=== PATIENT | female | born 1985 | race Caucasian/White ===

== ENCOUNTER 2025-04-10 13:46 | Emergency (ER) | payer OTHER, SELFPAY ==
[2025-04-10 13:50] VITALS: BP 147/74; PULSE 85; RESP 18; TEMP 36.7; O2SAT 98
[2025-04-10 14:35] LABS: EDCOVIDSCREEN Negative (Negative); EDINFLUASCREEN Negative (Negative); EDINFLUBSCREEN Negative (Negative)
--- NOTE | 2025-04-10 14:48 | ED_ITS ---
HPI - URI/Sore Throat General Chief Complaint: Upper Respiratory Infection Stated Complaint: sinus infection Time Seen by Provider: 04/10/25 14:33 Source: patient and RN notes reviewed Mode of arrival: ambulatory Limitations: no limitations History of Present Illness HPI Narrative: 39-year-old female patient with history of asthma presents today complaining of a nasal congestion with sinus pressure, headache, and rhinorrhea since yesterday. Denies cough, sore throat, fever, shortness of breath. She has tried Mucinex and Advil without much improvement and currently rates her discomfort /10. She used her albuterol inhaler once before bed last night as well. States that she becomes ill once a year with symptoms similar to this in typically needs an antibiotic. Related Data Allergies Allergy/AdvReac Type Severity Reaction Status Date / Time No Known Allergies Allergy Verified 04/10/25 13:57 [facility] Past Medical History Medical History (Updated 04/10/25 @ 14:49 by Mame Moon, [employer]IT[employer] OPERATOR, MANAGEMENT TRAINEE) Asthma Comments At time of signature, I have reviewed and agree with nursing past medical, surgical, social and family history unless otherwise noted. Please see nursing chart for further information. There is no relevant family history pertinent to the presenting complaint Exam Narrative: GENERAL: Mildly ill-appearing, well-nourished, and in no acute distress. HEAD: Normocephalic, atraumatic. EYES: EOMI. No redness or drainage. Conjunctivae normal. ENT: Mucous membranes pink and moist. Nares congested with rhinorrhea.. Bilateral nasal turbinates are mildly edematous with clear discharge. TMs normal bilaterally. Throat normal. Uvula midline. NECK: Normal AROM. Supple. No lymphadenopathy. CHEST: No respiratory distress. Clear to auscultation. HEART: Regular rate and rhythm. No murmur appreciated. EXTREMITIES: Normal range of motion. No edema. SKIN: Warm, dry, no rash. Capillary refill normal. Normal skin turgor. NEURO: No focal deficits. Alert and oriented x3. Gait steady. PSYCH: Normal affect. No signs of depression or anxiety. Course Course Level of Care: Express Care Visit Vital Signs Vital signs: Vital Signs Temperature 98.1 F 04/10/25 13:50 Pulse Rate 85 04/10/25 13:50 Respiratory Rate 18 04/10/25 13:50 Blood Pressure 147/74 H 04/10/25 13:50 Pulse Oximetry 98 04/10/25 13:50 Oxygen Delivery Room Air 04/10/25 13:50 Temperature 98.1 F 04/10/25 13:50 Pulse Rate 85 04/10/25 13:50 Respiratory Rate 18 04/10/25 13:50 Blood Pressure 147/74 H 04/10/25 13:50 Pulse Oximetry 98 04/10/25 13:50 Oxygen Delivery Room Air 04/10/25 13:50 Reviewed MDM - URI/Sore Throat MDM Narrative Medical decision making narrative: 39-year-old female patient with history of asthma presents today complaining of a nasal congestion with sinus pressure, headache, and rhinorrhea since yesterday. Denies cough, sore throat, fever, shortness of breath. She has tried Mucinex and Advil without much improvement and currently rates her discomfort 12/12. She used her albuterol inhaler once before bed last night as well. States that she becomes ill once a year with symptoms similar to this in typically needs an antibiotic. Upon exam, patient is mildly ill appearing.Nares congested with rhinorrhea.. Bilateral nasal turbinates are mildly edematous with clear discharge. Her COVID-19 and influenza swabs are negative. Her sym ptoms are likely viral in etiology. Discussed [id number] medication use and duration of illness. Patient would like to be started on a course of antibiotics prophylactically for sinusitis/pneumonia. Discussed with patient that it is not standard of care to initiate antibiotics until there is evidence of a bacterial infection present, which there is not today. As patient has asthma she will be started on a burst of prednisone due to complaining of needing to use her inhaler last night more than normal. SHe will also get a refill on her rescue albuterol. VSS. ED precautions and anticipatory guidance given. Differential Diagnosis Differential diagnosis: Likely upper respiratory infection, sinusitis, viral infection, influenza and other (COVID-19, pneumonia, asthma exacerbation) Lab Data Attestation: I reviewed the patient's lab results. Labs: Lab Results 04/10/25 Range/Units 13:58 POC Influenza A Ag Negative (Negative) POC Influenza B Ag Negative (Negative) POC SARS CoV-2 Ag Negative (Negative) Critical Care Time Critical Care Time Critical Care Time: No Discharge Plan Discharge Clinical Impression: Upper respiratory infection Qualifiers: URI type: unspecified URI Qualified Code(s): J06.9 - Acute upper respiratory infection, unspecified Patient Disposition: Home Condition: Stable Instructions: Upper Respiratory Infection (DC) Additional Instructions: Your COVID-19 and influenza swabs are negative today. Your symptoms are likely due to a viral illness, which is not treated with antibiotics. Virus symptoms can last for up to 7-10days. Take Tylenol or ibuprofen for pain or fever. Take the prednisone and use albuterol inhaler as directed. Rest and stay hydrated. Follow up with your PCP in 7-10 days if symptoms are not improving, or sooner if symptoms worsen. Go to the ER immediately if you develop shortness of breath, difficulty swallowing, development of new fever greater than 100.3, or any other concerning symptoms. Patient Language: Hungarian Prescriptions: New prednisone 20 mg tablet 40 mg PO DAILY 5 Days Qty: 10 0RF albuterol sulfate 90 mcg/actuation HFA aerosol inhaler 2 inh inhalation Q4-6H PRN (Reason: shortness of breath or wheezing) Qty: 8.5 0RF Follow-up/Referrals: Lefty,MIAH Mancia [Primary Care Provider] Time of Disposition: 14:45
--- OUTSIDE RECORDS SUMMARY | 2025-04-10 20:14 | XMS_ITS | Clinical Summary ---
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 Name Role Phone Jaret Olea Primary Care Provider [phone] Allergies No known active allergies Medications albuterol HFA (ProAir HFA) 90 mcg/actuation inhaler Inhale 2 puffs every 6 (six) hours as needed for wheezing 1 each 1 Active Additional Information Patient taking differently:2 puff inhalation Every 6 hours PRN,wheezing, shortness of breath, Informant: Self, Reported on 02/20/2023 acidophilus-pec tin, citrus 100 million cell-10 mg capsule Take 1 tablet by mouth daily before breakfast Active acetaminophen (TYLENOL) 500 mg tablet Take 2 tablets (1,000 mg total) by mouth every 6 (six) hours as needed for pain 30 tablet 3 Active ibuprofen (ADVIL,MOTRIN) 600 mg tablet Take 1 tablet (600 mg total) by mouth every 6 (six) hours as needed for pain 28 tablet 3 Active Active Problems Problem Noted Date Diagnosed Date Abnormal uterine bleeding (AUB) 02/10/2023 Abnormal uterine bleeding 01/05/2023 Overview (01/05/2023): Patient presents with long standing history of irregular, heavy cycles, ranging from 14-30 days, with passage of clots and 7-8 changes of pads/tampons throughout the day. Prior workup with outside provider 08/2022 notable for: CBC Hg 12.6 TSH 1.3, T4 1.13 (2020) Testosterone 23 Estradiol 34 US Pelvis (12/30/22) IMPRESSION: 1.5 cm fibroid within the uterine body. Otherwise negative. Discussed that in the setting of the patient's excessive hair growth on her chin, she meets criteria for PCOS with 2/3 [place] criteria. Also discussed management options, including OCPs/hormonal management, spironolactone, weight loss, etc. Patient notes that she has lost 6 pounds in the last month for unknown reasons. We also discussed the etiology of AUB, including structural (PALM) and functional (COEIN) etiologies for her symptoms, which have been mostly ruled out in the setting of prior ultrasound and TSH. We discussed management options for AUB, including medical, procedural (ablation), and surgical (hysterectomy) management. The patient strongly desires an ablation at this time, which we discussed would likely not treat her symptoms of PCOS in their entirety. She declines medical management at this time, as she does not like taking pills/would like to be more natural. Plan: - EMB today, will follow up result - Will discuss management options pending result Subareolar breast abscess 11/04/2021 Surgical History Surgery Date Site/Laterality Comments TUBAL LIGATION 06/05/2012 - 06/04/2013 laparoscopic Medical History Medical History Date Comments Asthma PONV (postoperative nausea and vomiting) Motion sickness Family History Medical History Relation Name Comments Heart failure Mother Heart attack Other Stroke Other Relation Name Status Comments Mother Other Social History Tobacco Use Types Packs/Day Years Used Date Smoking Tobacco: Every Day Cigarettes 0.5 15 Smokeless Tobacco: Never AUDIT-C Answer Date Recorded Q1: How often do you have a drink containing alcohol? Never 03/08/2023 Q2: How many drinks containi ng alcohol do you have on a typical day when you are drinking? Patient does not drink Q3: How often do you have si x or more drinks on one occasion? Never 03/08/2023 Hunger Vital Sign Answer Date Recorded Within the past 12 months, y ou worried that your food would run out before you got the money to buy more. Never true 01/06/20 Within the past 12 months, t he food you bought just didn't last and you didn't have money to get more. Never true 01/05/2023 Personal Safety Answer Date Recorded Have you ever been in or are you currently in a harmful physical or emotional relationship or is someone making you feel afraid or unsafe? Denies 03/08/2023 Comments No Sex and Gender Information Value Date Recorded Sex Assigned at Not on file Legal Sex Female 8:45 AM QUALITY ASSURANCE ADVISOR Gender Identity Not on file Sexual Orientation Not on file Obstetrics History Para Term AB IAB SAB Ectopic Multiple Livin g Live Births 3 2 1 1 2 Date Outcome GA Total Labor Labor/2nd/3rd Weight Sex Type Anes PTL Prudence A1 A5 Name Clin Term Para AB Last Filed Vital Signs Vital Sign Reading Time Taken Comments Blood Pressure 115/78 03/08/2023 5:40 PM CDT Pulse 75 03/08/2023 5:40 PM CDT Temperature 36.9 C (98.4 F) 03/08/2023 5:31 PM CDT Respiratory Rate 19 03/08/2023 5:40 PM CDT Oxygen Saturation 96% 03/08/2023 5:40 PM CDT Inhaled Oxygen Concentration - - Weight 78 kg (172 lb) 02/20/2023 10:10 AM CDT Height 154.9 cm (5' 1) 02/20/2023 10:10 AM CDT Body Mass Index 32.5 02/20/2023 10:10 AM CDT Plan of Treatment Health Maintenance Due Date Last Done Comments Cervical Cancer Screening 1987 Depression Screening 1987 Hepatitis C Screening 1987 Varicella Vaccines (1 of 2 - 13+ 2-dose series) 10/20/2000 DTaP/Tdap/Td Vaccine (6 - Tdap) 12/26/2001 12/25/2001, 01/07/1992, 05/05/1989, Additional history exists Regular Well Visit/Exam 18-64 10/20/2005 Pneumococcal vaccine <65 (1 of 2 - PCV) 10/20/2006 HPV Vaccines (1 - 3-dose SCD M series) 10/20/2014 Influenza Vaccine (#1) 2025 Hepatitis B Screening Completed 04/18/2001 , 01/12/2000, 01/09/1998 [id number] [place] [phone] [place] [address] Care Teams 7Th Grade Social Studies Teacher Relationship Specialty Start Date End Date Jaret Olea PA [address] [place] [address] [facility] - General 12/04/16
--- OUTSIDE RECORDS SUMMARY | 2025-04-10 20:14 | XMS_ITS | Data Portability ---
Author Organization [facility] [place] Address [address] [place] [address] Care Team Providers Care Cargo Service Supervisor Name Role Phone RIDDHI OLEA Primary Care Provider Assessment No assessment recorded. Plan of Treatment Reminders Order Date Submit Date Provider Last Modified By Organization Details Last Modified Time Details Appointments None record ed. Lab CBC w/ auto diff 2022 023 [facility], [address] [place] [address] 2, [place], [address], 3 07:14:18 cytolo gy report , thin prep, smear or scrapi ng, cervic al or vagina l 2022 023 [facility], [address] [place] [address], [facility] 2, [place], [address], 3 16:12:10 TSH + free T4, serum 2022 023 [facility], [address] [place] [address] 2, [place], [address], 3 11:13:52 Referral dermat ologis t referr al [facility] [address], [address], [place], [address], 4 12:20:25 gyneco logic surger y referr al - Hyster oscopy D&C 2022 023 [facility], [address] [place], [address], 10:19:26 Procedures None record ed. Surgeries None record ed. Imaging US, pelvis , transa bdomin al + transv aginal 2022 023 DELLA Umesh Olivarez (Radiology), [address] [facility] , [place], [address], 3 03:38:11 Medication Orders albute rol sulfat e HFA 90 mcg/ac tuatio n aeroso l inhale r 2022 023 [id number], [address] [place], [place], [id number], 3 13:00:38 Medrol (Pedro) 4 mg tablet s in a dose pack 2021 022 [facility], [address] [place] [address], [address], 3 09:50:34 Guaife nesin AC 10 mg-100 mg/5 mL oral liquid 2021 022 [facility], [address] [place] [address], [address], 3 09:50:46 albute rol sulfat e HFA 90 mcg/ac tuatio n aeroso l inhale r 2021 022 [facility], [address] [place] [address], [address], 2 11:33:57 Patient TargetsNo targets recorded. Patient Instructions Encounter Date Encounter Id Patient Instructions Last Modified By Organization Details Last Modified Time 03/02/2022 [id number] A healthy lifestyle: care instructions odilia Not available 03/02/2022 11:25:05 09/21/2022 [id number] A healthy lifestyle: care instructions [email or web address] Not available 09/21/2022 11:41:20 11/08/2022 [id number] body mass index: care instructions [email or web address] Not available 11/08/2022 16:31:08 learning about healthy weight carmen Not available 11/08/2022 16:31:07 11/29/2022 [id number] heavy menstrual periods: care instructions [email or web address] Not available 11/29/2022 16:02:31 12/26/2023 [id number] A healthy lifestyle: care instructions [email or web address] Not available 12/26/2023 16:58:33 Reason for Referral Gynecologic Surgery Referral for Menorrhagia Hysteroscopy D&C Referring Physician: Homer York, ACCOUNT STRATEGIST, Encounter Date: 11/29/2022 Collections Rep Referral for M elanocytic nevus of skin Referring Physician: Riddhi Olea, [facility], Encounter Date: 12/26/2023 Results Created Date Observation Date Name Description Value Unit Range Abnormal Flag Note LastModifiedBy Organization Detail LastModifiedTime 11/09/1911/09/2022 TSH+F REE T4 TSH 1.310 uIU/m L 0.450- 4.500 Not Available [facility] ([facility]) [address] [place], [address], 11/09/2022 11:13:52 11/09/1911/09/2022 TSH+F REE T4 T4,free(dire ct) 1.13 NG/dL 0.82-1 .77 Not Available [facility] ([facility]) [address] [place], [address], 11/09/2022 11:13:52 11/09/1911/09/2022 IGP, APTIM A HPV, RFX 16/18 ,45 HPV aptima Negati ve negati ve This nucle ic acid ampli ficat ion test detec ts fourt een high- risk HPV types (16,1 8,31, 33,35 ,39,4 5,51, 52,56 ,58,5 9,66, 68) witho ut diffe renti ation . Not Available [facility] ([facility]) [address] [facility], [place], [address], 11/12/2022 16:12:10 11/09/19 23 11/12/2022 IGP, APTIM A HPV, RFX 16/18 ,45 diagnosis: Ludivina mcelroy NEGAT GLENNA FOR INTRA EPITH ELIAL LESIO N OR PAUL RIVERA . THIS SPECI MEN WAS RESCR EENED PART OF OUR QUALI TY CONTR OL PROGR AM. Not Available [facility] ([facility]) [address] [facility], [place], [address], 11/12/2022 16:12:10 11/09/19 23 11/12/2022 IGP, APTIM A HPV, RFX 16/18 ,45 specimen adequacy: Ludivina mcelroy Satis facto ry for evalu ation . Endoc ervic al and/o r squam ous metap lasti c cells (endo cervi krishan compo nent) are prese nt. Not Available [facility] ([facility]) [address] [facility], [place], [address], 11/12/2022 16:12:10 11/09/19 23 11/12/2022 IGP, APTIM A HPV, RFX 16/18 ,45 clinician provided ICD10: Ludivina mcelroy Z01.4 19 Z68.3 4 Not Available [facility] ([facility]) [address] [facility], [place], [address], 11/12/2022 16:12:10 11/09/19 23 11/12/2022 IGP, APTIM A HPV, RFX 16/18 ,45 performed by: Franco Castellon Not Available [facility] ([facility]) [address] [facility], [place], [address], 11/12/2022 16:12:10 11/09/19 23 11/12/2022 IGP, APTIM A HPV, RFX 16/18 ,45 QC reviewed by: Ludivina Hammer , Cytot vanessa mcelroy (ASCP ) Not Available [facility] ([facility]) [address] [place], [address], 11/12/2022 16:12:10 11/09/19 23 11/12/2022 IGP, APTIM A HPV, RFX 16/18 ,45 . . Not Available [facility] ([facility]) [address] [place], [address], 11/12/2022 16:12:10 11/09/19 23 11/12/2022 IGP, APTIM A HPV, RFX 16/18 ,45 note: Ludivina mcelroy The Pap smear is a scree beatris test desig melissa to aid in the detec tion of raymond ligna nt and malig nant condi tions of the uteri ne cervi x. It is not a diagn ostic proce dure and shoul d not be used as the sole means of detec ting cervi krishan cance r. Both false -posi tive and false -nega tive repor ts do occur . Not Available [facility] ([facility]) [address] [facility], [place], [address], 11/12/2022 16:12:10 11/09/19 23 11/12/2022 IGP, APTIM A HPV, RFX 16/18 ,45 test methodology: Ludivina mcelroy This liqui d based ThinP rep(R ) pap test was scree melissa with the use of an image guide shima yuen. Not Available [facility] ([facility]) [address] [place], [address], 11/12/2022 16:12:10 11/09/19 23 11/12/2022 IGP, APTIM A HPV, RFX 16/18 ,45 HPV genotype reflex Ludivina mcelroy Crite bob not met, HPV Genot ype not perfo rmed. Not Available [facility] ([facility]) [address] [facility], [place], [address], 11/12/2022 16:12:10 11/30/19 23 11/29/2022 CBC WITH DIFFE RENTI AL/PL ATELE T WBC 8.0 K/uL 3.4-10 .8 Not Available [facility] [address] [place], [address], 11/30/2022 07:14:18 11/30/19 23 11/29/2022 CBC WITH DIFFE RENTI AL/PL ATELE T RBC 4.2 M/uL 4.2-5. 4 Not Available [facility] [address] [place], [address], 11/30/2022 07:14:18 11/30/19 23 11/29/2022 CBC WITH DIFFE RENTI AL/PL ATELE T hemoglobin 12.6 g/dL 11.5-1 5.5 Not Available [facility] [address] [facility], [place], [address], 11/30/2022 07:14:18 11/30/19 23 11/29/2022 CBC WITH DIFFE RENTI AL/PL ATELE T hematocrit 38.8 % 36.0-4 8.0 Not Available [facility] [address] [place], [address], 11/30/2022 07:14:18 11/30/19 23 11/29/2022 CBC WITH DIFFE RENTI AL/PL ATELE T MCV 92 fL 80-95 Not Available [facility] [address] [place], [address], 11/30/2022 07:14:18 11/30/19 23 11/29/2022 CBC WITH DIFFE RENTI AL/PL ATELE T MCH 30 pg 27-32 Not Available [facility] [address] [place], [address], 11/30/2022 07:14:18 11/30/1911/29/2022 CBC WITH DIFFE RENTI AL/PL ATELE T MCHC 33 g/dL 32-36 Not Available [facility] [address] [place], [address], 11/30/2022 07:14:18 11/30/19 23 11/29/2022 CBC WITH DIFFE RENTI AL/PL ATELE T RDW 13.6 % 11.5-1 4.5 Not Available [facility] [address] [place], [address], 11/30/2022 07:14:18 11/30/1911/29/2022 CBC WITH DIFFE RENTI AL/PL ATELE T platelets 218 K/uL 155-37 9 MPV 11.6 FL 8.9-1 2.7 N Not Available [facility] [address] [place], [address], 11/30/2022 07:14:18 11/30/1911/29/2022 CBC WITH DIFFE RENTI AL/PL ATELE T neutrophils 48.6 % 40.0-7 4.0 Not Available [facility] [address] [place], [address], 11/30/2022 07:14:18 11/30/19 23 11/29/2022 CBC WITH DIFFE RENTI AL/PL ATELE T lymphs 41.3 % 14.0-4 6.0 Not Available [facility] [address] [place], [address], 11/30/2022 07:14:18 11/30/1911/29/2022 CBC WITH DIFFE RENTI AL/PL ATELE T monocytes 6.2 % 4.0-12 .0 Not Available [facility] [address] [place], [address], 11/30/2022 07:14:18 11/30/19 23 11/29/2022 CBC WITH DIFFE RENTI AL/PL ATELE T eos 2 % 0-5 Not Available [facility] [address] [place], [address], 11/30/2022 07:14:18 11/30/19 23 11/29/2022 CBC WITH DIFFE RENTI AL/PL ATELE T basos 0.9 % 0.0-1. 0 Not Available [facility] [address] [place], [address], 11/30/2022 07:14:18 11/30/19 23 11/29/2022 CBC WITH DIFFE RENTI AL/PL ATELE T neutrophils (absolute) 3.9 K/uL 1.4-7. 0 Not Available [facility] [address] [place], [address], 11/30/2022 07:14:18 11/30/19 23 11/29/2022 CBC WITH DIFFE RENTI AL/PL ATELE T lymphs (absolute) 3.3 K/uL 0.7-3. 1 above high normal Not Available [facility] [address] [place], [address], 11/30/2022 07:14:18 11/30/19 23 11/29/2022 CBC WITH DIFFE RENTI AL/PL ATELE T monocytes(ab solute) 0.5 K/uL 0.1-0. 9 Not Available [facility] [address] [place], [address], 11/30/2022 07:14:18 11/30/19 23 11/29/2022 CBC WITH DIFFE RENTI AL/PL ATELE T eos (absolute) 0.2 K/uL 0.0-0. 4 Not Available [facility] [address] [place], [address], 11/30/2022 07:14:18 11/30/19 23 11/29/2022 CBC WITH DIFFE RENTI AL/PL ATELE T baso (absolute) 0.1 K/uL 0.0-0. 3 Not Available [facility] [address] [place], [address], 11/30/2022 07:14:18 11/30/19 23 11/29/2022 CBC WITH DIFFE RENTI AL/PL ATELE T immature granulocytes 0.9 % Not Available [facility] [address] [place], [address], 11/30/2022 07:14:18 11/30/19 23 11/29/2022 CBC WITH DIFFE RENTI AL/PL ATELE T immature grans (abs) 0.1 K/uL Not Available [facility] [address] [place], [address], 11/30/2022 07:14:18 11/30/19 23 11/29/2022 CBC WITH DIFFE RENTI AL/PL ATELE T NRBC 0 % Not Available [facility] [address] [place], [address], 11/30/2022 07:14:18 01/01/2012/30/2022 US, pelvi s, trans abdom inal + trans vagin al No observ ation record ed. [email or web address] [address], [place], [address], 01/12/2023 15:51:51 Result Notes None recorded. Problems No Known Problems Procedures Surgical History Date Name Laterality Status Provider Name and Address Organization Details Recorded Time 2 IUD Removal completed Homer York MD Attn: Accounting,[address] [place], [address], [place] [facility] 08/25/2021 13:40:20 1 Date of Last Pap Smear completed Fartun Dowell MA [facility] 08/24/2021 08:24:31 7 IUD Insertion completed Homer York MD Attn: Accounting,[address] [place], [address], [place] [facility] 03/29/2017 12:01:25 3 Tubal Ligation completed Ashia Hoff [place] [facility] 02/10/2017 10:51:26 Imaging Results None recorded. Procedure Notes None recorded. Medical Equipment None Reported. Allergies Allergen ID Allergen Name Allergen Category Reaction Reaction Severity Criticality Documentation Date Start Date Code Code System Note Provider Name and Address Organization Details Recorded Time [id number] albuterol sulfate medicatio n Not available Not available Not available 03/02/2018 66595 3 RxNorm anxie ty Muriel Husain MA null, [place] [facility] 8 16:32:46 Medications Name Sig Start Date Stop Date Status Note LastModified by Organization Details LastModified Time cyclobenzap rine 10 mg tablet Take 1 tablet 3 times a day by oral route as needed for 10 days. 03/04 completed Not Available Not Available Not Available amoxicillin 500 mg capsule 11/01 completed Not Available Not Available Not Available Mirena 21 mcg/24 hr (up to 8 years) 52 mg intrauterin e device Take 1 device by intrauter ine route. 03/02 completed Not Available Not Available Not Available doxycycline hyclate 100 mg capsule TAKE 1 CAPSULE BY MOUTH TWICE DAILY FOR 14 DAYS 09/15 completed Not Available Not Available Not Available hydrocodone 5 mg-acetamin ophen 325 mg tablet 03/04 completed Not Available Not Available Not Available acetaminoph en 300 mg-codeine 30 mg tablet 03/02 completed Not Available Not Available Not Available sulfamethox azole 800 mg-trimetho prim 160 mg tablet Take 1 tablet every 12 hours by oral route for 10 days. 03/02 completed Not Available Not Available Not Available hydrocortis one 2.5 % topical cream with perineal applicator 03/04 completed Not Available Not Available Not Available Guaiatussin AC 10 mg-100 mg/5 mL oral liquid Take 10 mL every 4 hours by oral route as needed. 09/15 completed Not Available Not Available Not Available amoxicillin 875 mg tablet TAKE 1 TABLET BY MOUTH EVERY 12 HOURS FOR 10 DAYS 11/29 completed Not Available Not Available Not Available ciprofloxac in 0.3 % eye drops INSTILL 1 DROP INTO AFFECTED EYE(S) BY OPHTHALMI C ROUTE EVERY 2 HOURSWHIL E AWAKE FOR 2 DAYS THEN 1 DROP EVERY 4 HRS WHILE AWAKE FOR 5 DAYS 08/25 completed Not Available Not Available Not Available cephalexin 500 mg capsule Take 1 capsule every 8 hours by oral route for 10 days. 12/16 completed Not Available Not Available Not Available hydrocortis one 2.5 % topical cream APPLY A THIN LAYER TO THE AFFECTED AREA(S) BY TOPICAL ROUTE 2 TIMES PER DAY 03/04 completed Not Available Not Available Not Available diclofenac sodium 50 mg tablet,theo yed release TAKE 1 TABLET BY MOUTH TWICE DAILY 09/21 completed Not Available Not Available Not Available lorazepam 1 mg tablet 03/04 completed Not Available Not Available Not Available ibuprofen 600 mg tablet 03/04 completed Not Available Not Available Not Available methylpredn isolone 4 mg tablets in a dose pack Take 1 dose pk by oral route as directed. 09/15 completed Not Available Not Available Not Available albuterol sulfate HFA 90 mcg/actuati on aerosol inhaler INHALE 2 PUFFS BY MOUTH EVERY 4 HOURS 2023 active Not Available Not Available Not Avai lable amoxicillin 875 mg-potassiu m clavulanate 125 mg tablet TAKE 1 TABLET BY MOUTH TWICE DAILY FOR 10 DAYS 03/02 completed Not Available Not Available Not Available azithromyci n 500 mg tablet Take 1 tablet every day by oral route for 3 days. 03/02 completed Not Available Not Available Not Available ciprofloxac in 0.3 %-dexametha sone 0.1 % ear drops,suspe nsion 08/25 completed Not Available Not Available Not Available chlorhexidi ne gluconate 0.12 % mouthwash 03/02 completed Not Available Not Available Not Available Zipsor 25 mg capsule Take 1 capsule 4 times a day by oral route as needed for 30 days. 03/04 completed Not Available Not Available Not Available Vitals Date Recorded Body height Body mass index (BMI) Body weight Oxygen saturation Oxygen saturation in Arterial blood by Pulse oximetry Heart rate Systolic And Diastolic Provider Name and Address Organization Details Last Updated DateTime 3 156.21 cm 34.4 kg/m2 71661.5 9 g 96 % 96 % 108 /min 118/82 mm[Hg] Vandana Perea MA [facility] 3 11:36:27 Date Recorded Body height Body mass index (BMI) Body weight Systolic And Diastolic Provider Name and Address Organization Details Last Updated DateTime 11/08/2022 156.21 cm 34.7 kg/m2 03407.05 g 112/76 mm[Hg] Rosalind Ty MA [facility] 11/08/2022 15:42:21 Date Recorded Body height Body mass index (BMI) Body weight Systolic And Diastolic Provider Name and Address Organization Details Last Updated DateTime 11/29/2022 156.21 cm 34.6 kg/m2 98863.18 g 113/76 mm[Hg] Rosalind Ty MA [facility] 11/29/2022 15:50:08 Date Recorded Body weight Oxygen saturation Oxygen saturation in Arterial blood by Pulse oximetry Heart rate Body mass index (BMI) Body height Systolic And Diastolic Provider Name and Address Organization Details Last Updated DateTime 4 04002.3 3 g 98 % 98 % 84 /min 33.5 kg/m2 156.21 cm 102/74 mm[Hg] Lolis Jaimes MA [facility] 4 16:46:58 Date Recorded Body height Body mass index (BMI) Body weight Body temperature Oxygen saturation Oxygen saturation in Arterial blood by Pulse oximetry Heart rate Systolic And Diastolic Provider Name and Address Organization Details Last Updated DateTime 2 156.21 cm 35.9 kg/m2 62230.3 3 g 97.3 [degF] 97 % 97 % 82 /min 110/70 mm[Hg] Mikala yuen MA [facility] 2 11:16:59 Social History Question Answer Notes LastModified by Organizat ion Details LastModified Time Tobacco Smoking Status Current Every Day Smoker Vandana Perea MA [facility] 02/14/2020 15:01:53 Do You Have An Advance Directive? No Information not available 11/08/2022 Is Blood Transfusion Acceptable In An Emergency? Yes Information not available 11/08/2022 What Is Your Level Of Caffeine Consumption? Moderate Information not available 03/02/2022 How Much Tobacco Do You Chew? None Information not available 02/14/2020 In The 14 Days Before Symptom Onset, Have You Had Close Contact With A Laboratory-confir med COVID-19 While That Case Was Ill? No Information not available 03/04/2021 In The 14 Days Before Symptom Onset, Have You Had Close Contact With A Person Who Is Under Investigation For COVID-19 While That Person Was Ill? No Information not available 03/04/2021 Have You Been To An Area Known To Be High Risk For COVID-19? No Information not available 03/04/2021 What Type Of Diet Are You Following? REGULAR Information not available 02/14/2020 Which Illicit Or Recreational Drugs Have You Used? None Information not available 02/14/2020 What Is The Highest Grade Or Level Of School You Have Completed Or The Highest Degree You Have Received? [id number] Information not available 11/08/2022 Have There Been Any Changes To Your Family Or Social Situation? No Information no t available 11/08/2022 Marital Status Single Informati on not available 05/14/2020 What Was The Date Of Your Most Recent Tobacco Screening? 12/26/2023 Information not available 12/26/2023 Do You Have Any Pets? Yes X 2 Dogs,1 Lizard,5 Goats,3 Turkeys 2 Duck ,12 Chickens & 1 Gissel Information not available 11/09/2022 What Is Your Relationship Status? Single Information not available 03/04/2021 Do You Use Your Seat Belt Or Car Seat Routinely? Yes Information not available 11/08/2022 Are You Sexually Active? Yes Information not available 11/08/2022 Do You Have Smoke And Carbon Monoxide Detectors In Your Home? Yes Information not available 03/04/2021 Are You Passively Exposed To Smoke? No Information no t available 03/04/2021 How Much Tobacco Do You Smoke? 0.25 PPD Information not available 02/10/2017 General Stress Level Medium Information not available 05/14/2020 Do You Use Sunscreen Routinely? Yes Information not available 11/08/2022 Has Tobacco Cessation Counseling Been Provided? Yes Information not available 03/04/2021 On What Date Was Tobacco Cessation Counseling Provided? 12/26/2023 Information not available 12/26/2023 How Many Years Have You Smoked Tobacco? 16 Information not available 02/10/2017 Sex: Female Functional Status Question Answer Note LastModified by Organizat ion Details LastModified Time Do you use any illicit or recreational drugs? No Information not available 03/04/2021 Do you or have you ever used any other forms of tobacco or nicotine? No Information not available 03/04/2021 What is your level of alcohol consumption? None Information not available 02/14/2020 Do you or have you ever used smokeless tobacco? Never used smokeless tobacco Information not available 02/14/2020 Are you currently employed? Yes Information not available 03/02/2022 Are you able to care for yourself independently? Yes Information not available 03/04/2021 What is your occupation? [employer] Information not available 03/02/2022 Do you or have you ever used e-cigarettes or vape? Never used electronic cigarettes Information not available 02/14/2020 What is your exercise level? Occasional Information not available 03/02/2022 Mental Status Question Answer Note LastModified by Organizat ion Details LastModified Time Do you feel stressed (tense, restless, nervous, or anxious, or unable to sleep at night)? [id number] cough Information not available 03/02/2022 Family History Relationship Description Onset Age of this Age Resolved Age Notes LastModified by Organization Details LastModified Time Mother Malignant neoplasm of cervix uteri mtitusma Not available 01/2017 10:50:37 Paternal Aunt Malignant neoplasm of cervix uteri mtitusma Not available 01/2017 10:50:37 Paternal Grandmother Malignant neoplasm of cervix uteri mtitusma Not available 01/2017 10:50:37 Medical History Condition Response Headaches/Migraines Y Asthma Y Gynecological History Statement/Question Response Abnormal Pap N Flow Heavy Date of LMP 12/04/2023 On BCP's at Conception? N STIs/STDs N Duration of Flow (days) 9 Age at Menarche 14 Current Control Method Tubal Ligat ion Age at First Child 22 Sexually Active? Y Menses Monthly No Date of Last Pap Smear 12/16/2020 Sexual Problems? Y LMP Approximate Obstetrics History GPAL:G 2 P 2 0 0 2 Type Value Full Term 2 Living 2 Total 2 Past Encounters Encounter ID Performer Location Encounter Start Date Encounter Closed Date Diagnosis/Indication Diagnosis SNOMED-CT Code Diagnosis ICD10 Code Diagnosis IMO Codes Diagnosis Note [id number] [place] [address] [address] [facility] [place] [address] 02/10/2017 10:26:28 02/10/2017 11:54:33 Gynecologic examination 09331787 Z01.419 Endometrio sis (clinical) 707045190 N80.9 - Informativ e pamphlet given to patient. Patient thinks she would like to try depo-prove ra for treatment. Will let us know when she makes her appointmen t. Menorrhagia 842559004 N9 2.0 [id number] MD Umesh Mahan ([place] [address]) [address] [facility] [place] [address] 03/08/2017 10:57:47 03/08/2017 15:14:11 Menorrhagia 754458002 N92.0 Will order Mirena IUD and place device upon arrival. [id number] MD Umesh Mahan ([place] [address]) [address] [facility] [place] [address] 03/29/2017 11:29:26 03/29/2017 12:55:58 Insertion of intrauterine contraceptive device 33601957 Z30.297 [id number] [place] [address] [address] [facility] [place] [address] 05/02/2017 15:17:00 05/03/2017 10:19:47 Surveillance of intrauterine device contraception done 5382722406 64950 Z30.40 RTC in 1 year or PRN [id number] Riddhi Olea PA-C [facility] [address] [place] [address] 03/02/2018 16:27:18 03/02/2018 17:02:22 Mild intermittent asthma 917805514 J45.20 [id number] Riddhi Olea PA-C [facility] [address] [place] [address] 06/28/2019 09:57:15 06/28/2019 13:31:48 Acute low back pain 205643483 M54.5 [id number] Riddhi Olea PA-C [facility] [address] [place] [address] 02/14/2020 09:43:04 02/14/2020 15:48:04 Acute bronchitis with bronchospasm 20298884 J20.8 [id number] Jaciel Alvarez MD [facility] [address] [place] [address] 05/14/2020 09:35:43 05/14/2020 15:13:53 Contact dermatitis 97023689 L23.5 [id number] MD Umesh Mahan 14 OB [address] [facility] [address] [place] [address] 12/16/2020 14:18:48 12/17/2020 07:05:50 Gynecologic examination 93890819 Z01.419 CBE and pap smear performed Palpitations 07093941 R0 0.2 Obesity 157394815 E66.9 [id number] Jaciel Alvarez MD [facility] [address] [place] [address] 03/04/2021 14:10:09 03/04/2021 14:54:12 Hordeolum externum of left eyelid [id number] 26809 H00.831 [id number] Riddhi Olea PA-C [facility] [address] [place] [address] 06/11/2021 10:24:19 06/14/2021 14:04:08 Body mass index 30+ - obesity 403706282 Z68.37 Swelling of eyelid 44845 7004 R22.0 [id number] MD Umesh Mahan 14 OB [address] [facility] [place] [address] 08/25/2021 11:22:29 08/26/2021 05:55:25 Hormone abnormality 20162811 R89.1 Removal of intrauterine device 58801892 Z30.432 mirena IUD removed Breast infection 2802406 05 N61.0 [id number] Riddhi Olea PA-C [facility] [address] [place] [address] 03/02/2022 11:11:15 03/02/2022 11:33:04 Overweight 741208903 E66.3 Persistent cough 4004594 02 R05.3 Acute bron chitis with bronchospasm 64696664 J20.8 [id number] Riddhi Olea PA-C [facility] [address] [place] [address] 09/21/2022 11:30:28 09/22/2022 12:14:16 Acute bronchitis with bronchospasm 76117867 J20.8 Overweight 887635098 E66 .3 [id number] MD Umesh Mahan 14 OB [address] [facility] [place] [address] 11/08/2022 15:30:10 11/15/2022 10:08:13 Gynecologic examination 75969561 Z01.419 CBE and pap smear performed Body mass index 30+ - obesity 301207831 Z68.34 --Discusse d weight loss drugs, will discuss further after lab work is performed. [id number] MD Umesh Mahan 14 OB [address] [facility] [place] [address] 11/29/2022 15:33:24 12/04/2022 07:48:15 Menorrhagia 547393635 N92.0 --Pt would like a referral for an endometria l ablation to be performed JULI--Disc ussed need for EMB prior to ablation being performed. [id number] Jaciel Alvarez MD [facility] [address] [place] [address] 12/26/2023 15:38:38 12/28/2023 13:06:33 Melanocytic nevus of skin 586836564 D22.39 Overweight 004851971 E66 .3 Health Concerns Section Related Observation LastModified by Organization Detai ls LastModified Time None Recorded Concern Status LastModified by Organization Details LastModified Time None Recorded Advance Directives Directive N: Payers Insurance Date Sequence Insurance Name Policy Number Policy Amaya Covered Member ID Amaya Member ID Guarantor Name 12/23/2023 1 [facility] - DOS ON OR AFTER 20 (MEDICAID REPLACEMENT - HMO) Mikala Lopez [id number] Mikala Lopez 12/16/2020 1 [facility] (MEDICAID HMO) Mikala Lopez [id number] Mikala Lopez 12/16/2020 1 [facility] - DOS PRIOR TO 2020 (MEDICAID REPLACEMENT - HMO) Mikala Lopez [id number] Mikala Lopez 12/16/2020 1 [place] [facility] [place] [facility] Mikala Lopez [id number] Mikala Lopez Notes Date Note Type Note Provider Name and Address Organization Details Recorded Time 03/02/2022 text/html ROS as noted in the HPI treated the infection but now cough wont stop...otc not helping Riddhi Olea PA-C Attn: Accounting,[address] [place], [address], [facility] [place] 03/02/2022 11:32:13 09/21/2022 text/html ROS as noted in the HPI needs refill on inhaler Riddhi Olea PA-C Attn: [address]ing[address] [place], [address], [facility] [place] 09/21/2022 11:41:44 11/08/2022 text/html Annual GYNReport ed by PatientHistoryFor history, patient reportsno gynecologic complaints.Genitourina ry symptomsFor menstrual cycle, patient reportsnormal menses. For urinary symptoms, patient reportsno hematuriaandno incontinence. For vulva, patient reportsno genital lesion. For vagina, patient reportsnormal vaginal discharge.Breast symptomsFor breast, patient reportsno breast pain,no breast lump, andno nipple discharge.Contraceptio nFor current contraception, patient reportstubal ligation.Endocrine symptomsFor sexual complaints, patient reportsno sexual complaints,no pain during intercourse, andnormal libido. For menopausal symptoms, patient reportsno menopausal symptomsandnormal vaginal lubrication.Psychologi krishan symptomsFor psychological symptoms, patient reportsno depression,no anxiety, andno pmdd.ROS as noted in the HPI Homer York MD Attn: Accounting,[address] [facility], [place], [address], [facility] 11/09/2022 20:23:35 11/29/2022 text/html ROS as noted in the HPI Patient complains of irregular periods. She states that her periods occur every 2 weeks and last for at least a week. She does not desire any form of contraception to control her bleeding and states she would like a referral for an endometrial ablation. She denies any other complaints. Homer York MD Attn: Accounting, [address] [facility], [place], [address], [facility] 11/29/2022 16:23:28 12/26/2023 text/html ROS as noted in the [facility] annual check up...no complaints...wants a referral to derm for a new nasal skin nodule.. Riddhi Olea PA-C Attn: Accounting, [address] [facility], [place], [address], [facility] 12/26/2023 16:59:10 OBGyn Episode No OBEpisode recorded.
--- OUTSIDE RECORDS SUMMARY | 2025-04-10 20:14 | XMS_ITS | Clinical Summary ---
Author Organization [facility] Address [address] [place] [address] Phone Care Team Providers Care Nitrate Operator Name Role Phone Jaret Olea Primary Care Provider [phone] Allergies No known active allergies Medications HYDROcodone-ann taminophen (NORCO) 5-325 MG Tablet Take 1 Tab by mouth every 6 hours as needed for Moderate or more severe pain. 12 Tab 06/23/2019 Active ibuprofen (MOTRIN) 600 MG Tablet Take 1 Tab by mouth every 8 hours as needed for Moderate or more severe pain. 60 Tab 06/23/2019 Active LORazepam (ATIVAN) 1 MG Tablet Take 1 Tab by mouth every 8 hours as needed for Other (muscle spasm). 10 Tab 06/23/2019 Active diclofenac (VOLTAREN) 50 MG Tablet Delayed Response Take 1 Tablet by mouth 2 times daily. 30 Tablet 04/29/2022 Active Social History Tobacco Use Types Packs/Day Years Used Date Smoking Tobacco: Every Day Cigarettes Alcohol Use Standard Drinks/Week Comments Not Currently 0 (1 standard drink = 0.6 oz pur e alcohol) Comments Unknown Sex and Gender Information Value Date Recorded Sex Assigned at Not on file Legal Sex Female 8:07 PM CDT Gender Identity Not on file Sexual Orientation Not on file Last Filed Vital Signs Vital Sign Reading Time Taken Comments Blood Pressure 127/74 04/29/2022 5:51 PM GLOBAL LOGISTICS ANALYST Pulse 76 04/29/2022 5:51 PM GLOBAL LOGISTICS ANALYST Temperature 36.3 C (97.4 F) 04/29/2022 2:59 PM GLOBAL LOGISTICS ANALYST Respiratory Rate 17 04/29/2022 5:51 PM GLOBAL LOGISTICS ANALYST Oxygen Saturation 100% 04/29/2022 5:51 PM GLOBAL LOGISTICS ANALYST Inhaled Oxygen Concentration - - Weight 81.6 kg (180 lb) 04/29/2022 2:59 PM GLOBAL LOGISTICS ANALYST Height 154.9 cm (5' 1) 04/29/2022 2:59 PM GLOBAL LOGISTICS ANALYST Body Mass Index 34.01 04/29/2022 2:59 PM GLOBAL LOGISTICS ANALYST Plan of Treatment Health Maintenance Due Date Last Done Comments Hepatitis C Virus (HCV) Screening 1987 TdaP Immunization 1987 Pap Smear 10/20/2008 Human Papillomavirus (HPV) Immunization (1 - 3-dose SCDM series) 10/20/2014 Cervical Cancer Screening (CCS) 10/20/2017 HPV/Cotest 10/20/2017 Influenza Immunization (#1) 2025 SARS-COV-2 Immunization ( season) 2025 Respiratory Syncytial Virus (RSV) Immunization (Adult) (1 - 1-dose 75+ series) 10/20/2062 Hepatitis B Immunization Completed 001, 01/12/2000, 01/09/1998 DTaP/Tdap/Td Immunization Discontinued 2001, 01/07/1992, 05/05/1989, Additional history exists Meningococcal Immunization (ACWY) Aged Out No longer eligible based on patient's age to complete this topic Pneumococcal Immunization Combined Aged Out No longer eligible based on patient's age to complete this topic Rotavirus Immunization Aged Out No lo nger eligible based on patient's age to complete this topic Insurance MEDICAID [facility] Care Teams Nitrate Operator Relationship Specialty Start Date End Date Jaret Olea, PAC [address] [place] [address] PCP - General Physician Gut Carrier 06/23/19
== END 2025-04-10 14:49 | disposition home or self-care (01) ==
PROVIDERS: Emergency Provider Nurse Practitioner; PCP Physician Assistant
DX: J06.9 Acute upper respiratory infection, unspecified (principal); Z20.822 Contact with and (suspected) exposure to COVID-19
CPT/HCPCS: 87426; 87804; 99203; G0463